=== PATIENT | male | born 1970 | race African-American/Black ===

== ENCOUNTER 2017-06-11 19:52 | Emergency (ER) | payer OTHER ==
[~2017-06-11] VITALS: Ht 175.3 cm; Wt 77.1 kg
[2017-06-11 20:05] VITALS: BP 132/98
[2017-06-11 20:20] VITALS: BP 125/78
[2017-06-11 20:25] VITALS: BP 125/78
--- NOTE | 2017-06-11 20:52 | Emergency Room Report ---
History of Present Illness General Chief Complaint: General Complaint Source: Patient Present Illness HPI 47-year-old male comes in with sweats, and bilateral hand numbness Patient lay down and symptoms resolved relatively quickly Patient had excessive alcohol intake last night, drinks 2-3 times a week but not heavily Only had "noodles" today Denies any other medical problems, or family history of cardiac issues or sudden at young age Denies any other medications Allergies: Coded Allergies: No Known Allergies (Unverified , 06/11/17) Patient History Past Medical History: none Past Surgical History: none Pertinent Family History: none Social History: Denies: smoking, alcohol use, drug use Immunizations: UTD Reviewed Nursing Documentation: PMH: Agreed, PSxH: Agreed Nursing Documentation-PMH Past Medical History: No Stated History Review of Systems All Other Systems: negative except mentioned in HPI Physical Exam Vital Signs Date Time Temp Pulse Resp B/P (MAP) Pulse Ox O2 Delivery O2 Flow Rate FiO2 06/11/17 20:03 99.0 126 20 135/102 94 Room Air Sp02 EP Interpretation: reviewed, normal General Appearance: normal inspection, well appearing, no apparent distress, alert, GCS 15, non-toxic Head: normocephalic, atraumatic Eyes: bilateral eye PERRL, bilateral eye EOMI ENT: normal ENT inspection, hearing grossly normal, normal pharynx, no angioedema, normal voice, TMs + canals normal, uvula midline, moist mucus membranes Neck: normal inspection, full range of motion, supple, thyroid normal, no meningismus, no bony tend Respiratory: normal inspection, lungs clear, normal breath sounds, no rhonchi, no respiratory distress, no retraction, no accessory muscle use, no wheezing, speaking full sentences Cardiovascular #1: regular rate, rhythm, no edema, no JVD, normal capillary refill Gastrointestinal: normal inspection, normal bowel sounds, non tender, soft, no mass, no peritonitis, non-distended, no guarding, no hernia, no pulsatile mass Genitourinary: no CVA tenderness Musculoskeletal: normal inspection, back normal, normal range of motion, no calf tenderness, pelvis stable, Ashlyn's Sign negative Neurologic: normal inspection, alert, oriented x3, responsive, registered sales assistant III-XII nml as tested, motor strength/tone normal, cerebellar normal, normal gait, speech normal Psychiatric: normal inspection, judgement/insight normal, mood/affect normal, no suicidal/homicidal ideation, no delusions Skin: normal inspection, normal color, no rash Lymphatic: normal inspection, no adenopathy Medical Decision Making Diagnostic Impression: Primary Impression: Neuropathy ER Course Signs stable Febrile No focal neurological deficits Patient now asymptomatic ECG nonischemic, no arrhythmia Peripheral neuropathy possibly related to recent alcohol abuse and or low potassium Advise hydration, potassium rich foods and avoidance of health heavy alcohol abuse Reassured patient ER course: Patient has remained stable during ED stay. Disposition: Patient is to be discharged to home. Patient is instructed to follow up with their primary care doctor within 5 days. Strict return precautions discussed with patient such as fever, chills, worsening/severe pain, nausea, vomiting, which may indicate severe illness. Patient verbalizes understanding and agrees with plan. Please note that this Emergency Department Report was dictated using [employer] digger technology software, occasionally this can lead to erroneous entry secondary to interpretation by the dictation equipment EKG Diagnostic Results Rate: normal Rhythm: NSR ST Segments: no acute changes ASA given to the pt in ED: No Last Vital Signs Date Time Temp Pulse Resp B/P (MAP) Pulse Ox O2 Delivery O2 Flow Rate FiO2 06/11/17 20:25 98.4 86 17 125/78 100 Room Air Status: improved Disposition: HOME, SELF-CARE Condition: Improved Referrals: NOT CHOSEN IPA/,REFERRING (PCP) Patient Instructions: Peripheral Neuropathy Additional Instructions: - Try to limit alcohol use - Eat potassium rich foods like bananas today/tomorrow LAMAR CASTRO M.D. Jun 11, 2017 20:52
--- NOTE | 2017-06-12 12:38 | Cardiology Report ---
APPROVED REPORT EKG Measurement Heart [id number] Sinus tachycardia Possible Anterior infarct, age undetermined Abnormal ECG
== END 2017-06-11 20:25 | disposition home or self-care (01) ==
LOC: EMR 20:10
DX: G62.9 Polyneuropathy, unspecified (principal)
CPT/HCPCS: 93005; 99282